=== PATIENT | male | born 1955 | race Caucasian/White ===

== ENCOUNTER 2021-04-22 13:44 | Outpatient (CLI) | payer BC, SELFPAY | END 2021-04-22 13:45 | disposition home or self-care (01) | LOC: SLEEP 04-23 13:45 | PROVIDERS: Family Provider Family Medicine; Visit Provider Family Medicine | DX: G47.10 Hypersomnia, unspecified (principal); R06.83 Snoring; R53.83 Other fatigue; G47.33 Obstructive sleep apnea (adult) (pediatric) | CPT/HCPCS: G0399 ==

== ENCOUNTER 2023-01-31 12:00 | Outpatient (CLI) | payer OTHER, SELFPAY ==
--- NOTE | 2023-01-31 12:13 | ECG_ITS ---
[facility] Test Date: 2023-01-31 Pat Name: Azael Jennings Department: Room: Gender: Male Hotel Attendant: : 1955 Requested By: Ramiro Lorenzo Order Number: [id number] Giraldo MD: Mira Patrick M.D. Interpretive Statements NAME OF STUDY: TREADMILL STRESS TEST INDICATION:, PROCEDURE: At the baseline, the patient's blood pressure was 149/84 fade with a heart rate of 104. The baseline electrocardiogram showed normal sinus rhythm with some nonspecific ST changes in the inferolateral leads. The patient exercised for 2 minutes and 30 seconds on a standard Uri protocol. Patient attained a maximum heart rate of 137 beats per minute(90% of the maximum predicted heart rate) with a blood pressure at the peak exercise of 170/101 mm Hg. The EKG at the peak exercise revealed some nonspecific ST changes in the inferolateral leads. Patient did not have any chest pain or any significant cardiac arrhythmias with the exercise During the recovery phase, there were no new changes. Blood pressure at the end of the recovery phase was 140/85 mm Hg with a heart rate of 105 per minute. CONCLUSION: 1. Some nonspecific EKG changes with the treadmill exercise 2. No exercise-induced chest pain or cardiac arrhythmia 3. Impaired exercise tolerance, attained a maximum of 4.6 METs Electronically Signed On 02-01-2023 0:26:17 CDT by Mira Patrick M.[email or web address]
[2023-01-31 12:16] VITALS: BMI 33.7
[2023-01-31 12:52] VITALS: BP 131/85; PULSE 99
== END 2023-01-31 12:01 | disposition home or self-care (01) ==
LOC: CDL 12:05
PROVIDERS: PCP Family Medicine; Visit Provider Family Medicine
DX: R06.09 Other forms of dyspnea (principal)
CPT/HCPCS: 93017